=== PATIENT | male | born 1985 | race Caucasian/White ===

== ENCOUNTER 2022-02-20 03:35 | Emergency (ER) | payer OTHER ==
[~2022-02-20 03:35] MED LIST: IBUPROFEN800 MG PO
[2022-02-20] MEDS ORDERED: CORTIZONE-1028 G1 TP (04:04)
[2022-02-20] MEDS ORDERED: VISTARIL 25 MG25 MG PO (04:04)
== END 2022-02-20 04:29 | disposition home or self-care (01) ==
LOC: ER1 03:35
DX: R20.2 Paresthesia of skin (principal); F17.210 Nicotine dependence, cigarettes, uncomplicated
CPT/HCPCS: 99282

== ENCOUNTER 2022-02-26 08:39 | Emergency (ER) | payer OTHER ==
[~2022-02-26 08:39] MED LIST changes: +CORTIZONE-1028 G1 TP; +VISTARIL 25 MG25 MG PO
[2022-02-26 09:38] LABS: HEMOGLOBIN 14.4 gm/dl (14.0-17.5); RED BLOOD COUNT 4.56 M/UL (4.20-5.50); WHITE BLOOD COUNT 6.4 K/UL (4.5-11.0)
[2022-02-26 10:06] LABS: BUN/CREATININE RATIO 17 (0-10)
== END 2022-02-26 11:19 | disposition home or self-care (01) ==
LOC: ER1 08:39
PROVIDERS: Emergency Medicine
DX: R21 Rash and other nonspecific skin eruption (principal); E87.6 Hypokalemia; R07.9 Chest pain, unspecified; I10 Essential (primary) hypertension; F17.200 Nicotine dependence, unspecified, uncomplicated; Z86.59 Personal history of other mental and behavioral disorders
CPT/HCPCS: 71045; 80053; 82550; 82553; 84484; 85025; 85379; 93005; 99285

== ENCOUNTER 2022-04-02 09:47 | Emergency (ER) | payer OTHER ==
[2022-04-02 10:25] LABS: HEMOGLOBIN 13.8 gm/dl (14.0-17.5); RED BLOOD COUNT 4.38 M/UL (4.20-5.50); WHITE BLOOD COUNT 14.9 K/UL (4.5-11.0)
[2022-04-02 11:05] LABS: BUN/CREATININE RATIO 13 (0-10)
[2022-04-02] MEDS ORDERED: KEPPRA750 MG PO (13:04)
== END 2022-04-02 13:14 | disposition left against medical advice (07) ==
LOC: ER1 09:47
PROVIDERS: Family Medicine
DX: G40.89 Other seizures (principal); F19.10 Other psychoactive substance abuse, uncomplicated; Z86.19 Personal history of other infectious and parasitic diseases; E03.9 Hypothyroidism, unspecified
CPT/HCPCS: 70450; 71045; 80053; 80307; 82550; 82553; 84484; 85025; 85610; 93005; 96374; 96375; 99283; G0480; J1953; J2060

== ENCOUNTER 2022-04-15 17:32 | Emergency (ER) | payer OTHER ==
[~2022-04-15 17:32] MED LIST changes: +KEPPRA750 MG PO
== END 2022-04-15 20:21 | disposition home or self-care (01) ==
LOC: ER1 17:32
DX: R21 Rash and other nonspecific skin eruption (principal); I25.2 Old myocardial infarction; F17.210 Nicotine dependence, cigarettes, uncomplicated
CPT/HCPCS: 99282

== ENCOUNTER 2022-04-20 07:01 | Emergency (ER) | payer OTHER | END 2022-04-20 08:30 | disposition left against medical advice (07) | LOC: ER1 07:01 | DX: R07.9 Chest pain, unspecified (principal); R44.3 Hallucinations, unspecified; E11.9 Type 2 diabetes mellitus without complications; I10 Essential (primary) hypertension; F17.200 Nicotine dependence, unspecified, uncomplicated | CPT/HCPCS: 71045; 93005; 99283 ==